=== PATIENT | female | born 1940 | race Caucasian/White ===

== ENCOUNTER → 2020-06-29 | Outpatient (CLI) | payer OTHER, BC ==
[~2020-06-29] MED LIST: NEURONTIN 300300 M1 PO; PRAVACHOL40 MG PO; PROAIR HFA8.5 GM INH; QVAR8.7 G1 IH; ZESTRIL10 MG PO; [UNRECOGNIZED DRUG - OTHER]
== END ==
LOC: LAB 10:13
PROVIDERS: ATTEND Internal Medicine Pulmonary Disease
DX: Z20.822 Contact with and (suspected) exposure to COVID-19 (principal); Z20.828 Contact with and (suspected) exposure to other viral communicable diseases

== ENCOUNTER → 2020-07-11 | Outpatient (CLI) | payer OTHER, BC ==
--- NOTE | ~2020-07-11 | PFR/MVV ---
[facility] [place] [address] PULMONARY FUNCTION MVV/REPORT Name: JACLYN HERMAN Room #: [facility].#: [id number] Admission: 07/11/20 Attend Phys: Eric De Los Santos MD Discharge: Date of : 44 Report #: [id number] THIS REPORT FOR: //name// >> SPIROMETRY: (BTPS) Height: 52 in cm Weight: 122 lbs kg Exam Date: 07/11/20 PRE-RX POST-RX PRED BEST %PRED BEST %PRED %CHG FVC LITERS . 2.52 . 3.08 . 122 . 3.37 . 134 . 9 FEV1 LITERS . 1.72 . 1.71 . 99 . 1.91 . 111 . 12 FEV1/FVC % . 70 . 55 . 79 . 57 . 81 . 2 % L/Sec . 1.99 . 0.52 . 26 . 0.66 . 33 . 25 PEF L/SEC . 5.15 . 4.59 . 89 . 5.04 . 98 . 10 FEF50/FIF50 UNITLESS . <1.00 . 0.35 . . 0.50 . . 43 MVV L/Min . 78 . 61 . 78 f 1/Min . . 140 . >> LUNG VOLUMES: (BTPS) PRE-RX POST-RX PRED AVG %PRED AVG %PRED %CHG VC Liters . 2.52 . 3.08 . 122 . . . TLC Liters . 4.55 . 5.03 . 110 . . . RV Liters . 1.92 . 1.95 . 101 . . . RV/TLC % . 42 . 39 . 91 . . . FRC PL Liters . 2.83 . 2.52 . 89 . . . FRC N2 Liters . 2.83 . . . . . ERV Liters . 0.85 . 0.57 . 67 . . . IC Liters . 1.70 . 2.27 . 133 . . . >> DIFFUSION: DLCO ml/Min/mmHg . 15.7 . 9.0 . 57 . . . DL Kitty ml/Min/mmHg . 15.7 . 9.0 . 57 . . . DLCO/VA ml/Min/mmHg . 3.36 . 2.57 . 76 . . . VA Liters . . 3.50 . . . . COMMENTS: COMMENTS: >> RESISTANCE: [facility] [address] [place] [address] PULMONARY FUNCTION MVV/REPORT Name: JACLYN HERMAN Room #: [facility].#: [id number] Admission: 07/11/20 Attend Phys: Eric De Los Santos MD Discharge: Date of : 44 Report #: [id number] PRE-RX PRED AVG %PRED Raw Total cmH20/L/Sec . . 4.25 . Raw Insp cmH20/L/Sec . . 5.07 . Raw Exp cmH20/L/Sec . . 7.30 . Raw cmH20/L/Sec . 1.35 . 2.83 . 210 Gaw L/Sec/cmH20 . 0.678 . 0.353 . 52 sRaw cmH20 Sec . 3.81 . 8.80 . 231 sGaw l/cmH20 Sec . 0.262 . 0.114 . 43 Vtq Liters . . 3.11 . # = OUTSIDE 95% CONFIDENCE INTERVAL CALIBRATION: PRED: 3.00 ACTUAL: EXP 3.01 INSP 3.02 [place] [id number] [place] [id number] >> INTERPRETATION/IMPRESSION: DATE OF SERVICE: 07/11/2020 PULMONARY FUNCTION STUDY ATTENDING PHYSICIAN: Dr. Eric De Los Santos. SPIROMETRY: FEV1 is 1.71 L (99%), FVC is 3.08 L (122%), FEV1/FVC ratio is 70%. Postbronchodilator response is significant. FEV1 increased from (1.72 L to 1.91 L and a 12% change). LUNG VOLUMES: Total lung capacity is 5.03 L (110%). RV is 1.95 L (101%). Diffusing capacity is 57%. IMPRESSION: Pulmonary function studies are consistent with a mild obstructive airflow defect with a significant response to bronchodilator therapy. Lung volumes are normal with no evidence of air trapping or hyperinflation. Diffusing capacity is moderately decreased. By: Krish Marshall MD /nt
== END ==
LOC: PUL 07-03 14:49
PROVIDERS: ATTEND Internal Medicine Pulmonary Disease
DX: J45.30 Mild persistent asthma, uncomplicated (principal); Z20.822 Contact with and (suspected) exposure to COVID-19